=== PATIENT | female | born 1965 | race Native Hawaiian/Other Pacific Islander ===

== ENCOUNTER 2021-06-26 15:57 | Emergency (ER) | payer OTHER ==
[~2021-06-26] VITALS: Ht 170.2 cm; Wt 56.7 kg
[2021-06-26 16:00] VITALS: TEMP 98
[2021-06-26 16:39] LABS: POTASSIUM 3.6 mmol/L (3.6-5.2)
[2021-06-26 16:48] LABS: PLATELET COUNT 248 K/uL (152-353)
[2021-06-26 17:07] VITALS: BP 147/70
== END 2021-06-26 17:25 | disposition home or self-care (01) ==
LOC: ED 15:57
PROVIDERS: Emergency Medicine
DX: R42 Dizziness and giddiness (principal); R55 Syncope and collapse
CPT/HCPCS: 36415; 80048; 84484; 85027; 93005; 96374; 99284; J1100